=== PATIENT | female | born 1975 | race African-American/Black ===

== ENCOUNTER 2018-10-23 20:45 | Emergency (ER) | payer SELFPAY ==
[~2018-10-23] VITALS: Ht 167.6 cm; Wt 79.4 kg
[2018-10-23 20:52] VITALS: BP 133/96
--- NOTE | 2018-10-23 21:43 | NUR ---
PT REFUSING BLOOD DRAW AND REQUESTING TO SPEAK TO DO LOPEZ.
--- NOTE | 2018-10-23 22:10 | NUR ---
PT NOT IN ROOM. PT ELOPED.
== END 2018-10-23 23:12 | disposition home or self-care (01) ==
LOC: EDBD 20:45 → ER 20:45
DX: M79.18 Myalgia, other site (principal); Z53.21 Procedure and treatment not carried out due to patient leaving prior to being seen by health care provider